=== PATIENT | male | born 1980 | race Caucasian/White ===

== ENCOUNTER 2024-08-12 10:59 | Emergency (ER) | payer SELFPAY ==
[2024-08-12 11:04] VITALS: BP 152/94
--- NOTE | 2024-08-12 11:37 | ED.SKININJ ---
HPI-Injury
General
Chief Complaint: Skin Surface Trauma
Source: patient
Exam Limitations: none
Time Seen by Provider: 08/12/24 11:11
History of Present Illness-Injury
Initial Injury comments:
43-year-old [id number] male presents with laceration to left index finger he sustained today. He slipped with his utility knife and cut his left index finger. He states he cannot bend the tip of his finger. Last tetanus unknown.
Phy Exam
Physical Exam
Physical Exam:
General: Well-appearing male no acute respiratory distress
Skin: 2 cm transverse laceration volar aspect left index finger overlying the middle phalanx this is deep.
Musculoskeletal exam: Patient unable to flex at the DIP joint but is able to set the PIP joint of the left index finger.
Neurologic exam: Good sensation left index finger
Vascular: Brisk cap refill tip of left index finger
Course
Orders/Labs/Results
Orders:
Orders
08/12/24 11:03
Hand, Left 3 View [CR Hand - Left Min 3 Views] Urgent
Comment:
Reason For Exam: trauma, laceration
08/12/24 11:21
Tetanus/Diphth/Acelpertussis [Adacel] 0.5 ml IM .ONCE ONE
Vital Signs
Initial and Last Documented VS:
Initial Vital Signs
Temp Pulse Resp BP Pulse Ox
98.4 F 67 18 152/94 98
08/12/24 11:04 08/12/24 11:04 08/12/24 11:04 08/12/24 11:04 08/12/24 11:04
Last Documented Vital Signs
Temp Pulse Resp BP Pulse Ox
98.4 F 67 18 152/94 98
08/12/24 11:04 08/12/24 11:04 08/12/24 11:04 08/12/24 11:04 08/12/24 11:04
MDM/Problems Addressed
Differential Diagnosis Includes:
Laceration left index finger. Concern for possible FDP tendon injury secondary to inability to flex at the DIP joint. X-rays were taken through triage which are negative for bony abnormality. He did have good sensation on exam with good blood
flow. Digital block was provided. Contacted orthopedics for recommendations
*Critical Care Note
Total Time (30-74mins, 75-104mins- exclusive of procedures): Not Applicable
Update Note
Update Note:
Spoke with orthopedics and relayed the concern for flexor tendon injury. They advised to clean the wound down close the skin and splint and they will see it in the office as an outpatient. The finger was soaked with peroxide Betadine and tap
water. The wound was then irrigated after digital block was provided using 1% lidocaine at the base of the finger. Sutures were used to close the skin. 4-0 Prolene sutures in a simple erupted fashion. A total of 5 sutures were required. A gauze
wrap dressing was applied tetanus vaccine updated started on Keflex and he was referred to Ortho
ED Attending Note
-
Portions of this chart may have been created with voice recognition software.� Occasional wrong word or��sound alike� substitutions may have occurred due to the inherent limitations of voice recognition software.
Discharge Plan
Departure
Patient Disposition: Home (Routine Discharge)
Date of Disposition: 08/12/24
Time of Disposition: 12:40
Patient with high blood pressure during this ER visit?: No
Discharge Problem:
Laceration, Flexor tendon laceration of finger with open wound
Instructions: Laceration Repair With Stitches (DC)
Prescriptions:
New
cephalexin 500 mg capsule
500 mg PO Q6H 7 Days Qty: 28 0RF
Referrals:
NONE,* [Family Provider] -
Emre Leon MD [Active] -
Activity Restrictions/Additional Instructions:
Please follow-up with a hand specialist. Call this afternoon to confirm your appointment time for August 17. Take antibiotics as directed. A prescription for the antibiotic was sent to your pharmacy electronically. Keep splint on and
keep wound covered.
Interventions
Interventions:
*Risk Screen - Suicide Last Done: 08/12/24 11:00
*General Assessment Last Done: 08/12/24 11:00
*Neglect/Abuse Screening Last Done: 08/12/24 11:00
Discharge Date and Time
Print Language: IVORIAN
[2024-08-12 11:50] VITALS: BMI 28.4
[2024-08-12] MEDS: KEFLEX 500 MG PO (12:49)
[2024-08-12] MEDS: ADACEL 0.5 ML IM (12:53)
== END 2024-08-12 13:51 | disposition home or self-care (01) ==
LOC: EMR 10:59
PROVIDERS: EMERGENCY PHYSICIAN Emergency Medicine
DX: S61.211A Laceration without foreign body of left index finger without damage to nail, initial encounter (principal); W26.0XXA Contact with knife, initial encounter; Z23 Encounter for immunization
CPT/HCPCS: 12001; 90471; 99283; 73130; 90715